=== PATIENT | female | born 1965 | race American Indian/Alaskan Native ===

== ENCOUNTER 2017-02-02 16:29 | Emergency (ER) | payer MEDICAID ==
[2017-02-02 16:42] VITALS: BP 134/86
[2017-02-02] MEDS ORDERED: NACL 0.9% 1000 ML 1,000 ML IV ONE (16:45)
[2017-02-02] MEDS ORDERED: BENADRYL IV ONE (16:45)
[2017-02-02] MEDS ORDERED: PEPCID IV ONE (16:45)
--- NOTE | 2017-02-02 16:48 | Emergency Department Report ---
Chief Complaint: Allergic Reaction Stated Complaint: ALLERGIC REACTION - HPI History of Present Illness: This is a 51-year-old female nontoxic, well nourished in appearance, no acute signs of distress presents to the ED with c/o of allergic reaction. Patient describes as rash, facial swelling and hives. Patient stated this developed this morning. Patient is a chronic intermittent condition. Another source of the allergic reaction. Patient denies any shortness of breath, difficulty breathing, drooling, numbness, diarrhea, chest and short of breath. - Exam Vital Signs: Vital Signs 02/02/17 16:34 Temperature 98.2 F Pulse Rate 131 H Respiratory 18 Rate Blood Pressure 134/86 O2 Sat by Pulse 98 Oximetry Physical Exam: GENERAL: The patient is a well-developed, well-nourished female in no apparent distress. Patient is alert and acting appropriately for age. Alert and oriented 3, no apparent distress, normal gait, atraumatic. LUNGS: Clear to auscultation. Non labor breathing. No intercostal retractions. Symmetrical with respiration, no wheezing, no rales, or crackles. Skin: Slight facial swelling. No anterior edema present. Urticaria present diffuse. MSE screening note: Focused history and physical exam performed. Due to findings the following was ordered: 1- This initial assessment/diagnostic orders/clinical plan/ treatment(s) is/are subject to change based on pt's health status, clinical progression and re- assessment by fellow clinical providers in the ED. Further treatment and workup at subsequent clinical provers discretion. Patient/guardians urged not to elope from ED as their condition may be serious if not clinically assessed and managed. 2-patient is brought back to the ED. 3-1 L of normal saline, Solu-Medrol, Benadryl and Pepcid to be started as soon as possible. ED Disposition for MSE Condition: Stable
[2017-02-02 17:45] LABS: Basophils % (Auto) 0.2 % (0.0-1.8); Eosinophils % (Auto) 0.4 % (0.0-4.3); Hematocrit 43.7 % (30.3-42.9); Hemoglobin 14.3 gm/dl (10.1-14.3); Mean Corpuscular HGB Conc 33 % (30-34); Mean Corpuscular Hemoglobin 31 pg (28-32); Mean Corpuscular Volume 96 fl (79-97); Platelet Count 273 K/mm3 (140-440); Red Blood Count 4.57 M/mm3 (3.65-5.03); Red Cell Distribution Width 13.5 % (13.2-15.2); White Blood Count 8.3 K/mm3 (4.5-11.0)
[2017-02-02 18:04] LABS: Anion Gap 19 mmol/L; BUN/Creatinine Ratio 11; Blood Urea Nitrogen 9 mg/dL (7-17); Calcium 8.3 mg/dL (8.4-10.2); Carbon Dioxide 21 mmol/L (22-30); Chloride 97.3 mmol/L (98-107); Glucose 107 mg/dL (65-100); Potassium 3.4 mmol/L (3.6-5.0); Sodium 134 mmol/L (137-145)
--- NOTE | 2017-02-02 18:13 | Emergency Department Report ---
HPI - General Chief Complaint: Allergic Reaction Time Seen by Provider: 02/02/17 17:39 - HPI HPI: This is a 51-year-old female who presents with generalized hives and itching in times today. Patient states that she's had this before was treated at [facility] from allergic reaction. Patient states she does not recall her contact but broke out in hives and started itching all over. She denies taking any medication. She denies any allergies to any medications. She denies any prior history of medical conditions. She denies fevers/chills/nausea/vomiting/difficulty breathing/shortness of breath/chest pain/dizziness or any other problems. ED Past Medical Hx - Past Medical History Additional medical history: Angioedema and urticaria - Surgical History Past Surgical History?: No - Social History Smoking Status: Current Every Day Smoker Substance Use Type: None - Medications Home Medications: Home Medications Medication Instructions Recorded Confirmed Last Taken Type Famotidine [Pepcid] 20 mg PO BID #20 tablet 02/02/17 Unknown Rx diphenhydrAMINE [Benadryl CAP] 25 mg PO QHS PRN #30 capsule 02/02/17 Unknown Rx predniSONE [Deltasone] 20 mg PO QDAY #5 tab 02/02/17 Unknown Rx ED Review of Systems ROS: Stated complaint: ALLERGIC REACTION Other details as noted in HPI Constitutional: denies: chills, fever Eyes: denies: eye pain, eye discharge, vision change ENT: denies: ear pain, throat pain Respiratory: denies: cough, shortness of breath, wheezing Cardiovascular: denies: chest pain, palpitations Endocrine: no symptoms reported Gastrointestinal: denies: abdominal pain, nausea, diarrhea Genitourinary: denies: urgency, dysuria, discharge Musculoskeletal: denies: back pain, joint swelling, arthralgia Skin: denies: rash, lesions Neurological: denies: headache, weakness, paresthesias Psychiatric: denies: anxiety, depression Hematological/Lymphatic: denies: easy bleeding, easy bruising Physical Exam - Physical Exam Vital Signs: Vital Signs 02/02/17 16:34 Temperature 98.2 F Pulse Rate 131 H Respiratory 18 Rate Blood Pressure 134/86 O2 Sat by Pulse 98 Oximetry Physical Exam: GENERAL: Alert and oriented x3, no apparent distress, Normal Gait, atraumatic. HEAD: Head is normocephalic and a-traumatic. EYES: Extra ocular muscles are intact. Pupils are equal, round, and reactive to light and accommodation. EARS: symetrical, atraumatic, non tender, ear canal clear and moderate cerumen, tympanic membrance non inflamed. gross auditory nml bilaterally. NOSE: Nose symetrical, Nontender,Nares appeared normal. MOUTH:Mouth is well hydrated and without lesions. Upper Lips mildly swollen, Tonsils nonerythematous or swollen, Uvula midline, Tongue not elevated. Mucous membranes are moist. Posterior pharynx clear, no exudate or lesions. Patent airways. NECK: Supple. Non edematous, No lymphadenopathy or thyromegaly. HEART: S1, S2 present, regular rate and rhythm without murmur, no rubs, no gallops. Non tender to palpation ABDOMEN: No organomegaly was noted,Positive bowel sounds, soft, and non- distended. . Nontender to palpation on all Quadrants, NO CVA tenderness. SKIN: Generalized, raised, erythematous, plaques all of her extremities chest and trunk. Warm and dry, No lesions, No ulceration or induration present. ED Course Vital Signs 02/02/17 16:34 Temperature 98.2 F Pulse Rate 131 H Respiratory 18 Rate Blood Pressure 134/86 O2 Sat by Pulse 98 Oximetry ED Medical Decision Making - Lab Data Result diagrams: 02/02/17 17:39 02/02/17 17:39 Laboratory Last Values WBC 8.3 K/mm3 (4.5-11.0) 02/02/17 17:39 RBC 4.57 M/mm3 (3.65-5.03) 02/02/17 17:39 Hgb 14.3 gm/dl (10.1-14.3) 02/02/17 17:39 Hct 43.7 % (30.3-42.9) H 02/02/17 17:39 MCV 96 fl (79-97) 02/02/17 17:39 MCH 31 pg (28-32) 02/02/17 17:39 MCHC 33 % (30-34) 02/02/17 17:39 RDW 13.5 % (13.2-15.2) 02/02/17 17:39 Plt Count 273 K/mm3 (140-440) 02/02/17 17:39 Lymph % (Auto) 22.2 % (13.4-35.0) 02/02/17 17:39 [place] % (Auto) 3.3 % (0.0-7.3) 02/02/17 17:39 Eos % (Auto) 0.4 % (0.0-4.3) 02/02/17 17:39 Baso % (Auto) 0.2 % (0.0-1.8) 02/02/17 17:39 Lymph # 1.8 K/mm3 (1.2-5.4) 02/02/17 17:39 [place] # 0.3 K/mm3 (0.0-0.8) 02/02/17 17:39 Eos # 0.0 K/mm3 (0.0-0.4) 02/02/17 17:39 Baso # 0.0 K/mm3 (0.0-0.1) 02/02/17 17:39 Seg Neutrophils % 73.9 % (40.0-70.0) H 02/02/17 17:39 Seg Neutrophils # 6.1 K/mm3 (1.8-7.7) 02/02/17 17:39 Sodium 134 mmol/L (137-145) L 02/02/17 17:39 Potassium 3.4 mmol/L (3.6-5.0) L 02/02/17 17:39 Chloride 97.3 mmol/L (98-107) L 02/02/17 17:39 Carbon Dioxide 21 mmol/L (22-30) L 02/02/17 17:39 Anion Gap 19 mmol/L 02/02/17 17:39 BUN 9 mg/dL (7-17) 02/02/17 17:39 Creatinine 0.8 mg/dL (0.7-1.2) 02/02/17 17:39 Estimated GFR > 60 ml/min 02/02/17 17:39 BUN/Creatinine Ratio 11 % 02/02/17 17:39 Glucose 107 mg/dL (65-100) H 02/02/17 17:39 Calcium 8.3 mg/dL (8.4-10.2) L 02/02/17 17:39 - Medical Decision Making 51-year-old female presents to ED with allergic reaction ED course: Patient received 125 IV Solu-Medrol, Benadryl, Pepcid IV and a liter of fluids. CBC and BMP ordered labs within normal limits. Electrolytes mildly depleted but was resuscitated with some fluids. She reports to feeling much better after administration of medications. Discussed the patient to follow up with primary care physician. I discussed with patient to turn to ED if any new or worsening symptoms. She is in no acute or respiratory distress. Nuerological intact with no airway compromise. Critical care attestation.: If time is entered above; I have spent that time in minutes in the direct care of this critically ill patient, excluding procedure time. ED Disposition Clinical Impression: Hives Allergic reaction Qualifiers: Encounter type: initial encounter Qualified Code(s): T78.40XA - Allergy, unspecified, initial encounter Disposition: TO HOME OR SELFCARE Is pt being admited?: No Does the pt Need Aspirin: No Condition: Stable Instructions: Contact Dermatitis (ED), Urticaria (ED), Poison [place] (ED) Additional Instructions: Follow-up with her primary care physician. If you have worsening symptoms such as difficulty breathing return to ED immediately Prescriptions: diphenhydrAMINE [Benadryl CAP] 25 mg PO QHS PRN #30 capsule PRN Reason: Allergic Reaction Famotidine [Pepcid] 20 mg PO BID #20 tablet predniSONE [Deltasone] 20 mg PO QDAY #5 tab Referrals: [facility] [Outside] - 3-5 Days [facility] [Outside] - 3-5 Days [facility] [Outside] - 3-5 Days Forms: Accompanied Note, Work/School Release Form(ED) Time of Disposition: 18:17
== END 2017-02-02 18:51 | disposition home or self-care (01) ==
LOC: ED 16:29
DX: L50.8 Other urticaria (principal); T78.40XA Allergy, unspecified, initial encounter; F17.200 Nicotine dependence, unspecified, uncomplicated
CPT/HCPCS: 36415; 80048; 85025; 96361; 96374; 96375; 99283; J1200; J2930; J7030